=== PATIENT | male | born 2000 | race Caucasian/White ===

== ENCOUNTER 2024-07-15 11:37 | Outpatient (CLI) | payer OTHER, SELFPAY ==
--- NOTE | 2024-07-15 11:50 | XR_ITS ---
WS: [id number] Exam: XR lumbar spine min 4V [id number] Date/Time of Exam: 07/15/2024 11:51 AM Reason For Exam: CHRONIC LOWER BACK PAIN No acute fracture or dislocation. Disc spaces are preserved. Posterior elements are intact. XR/XR lumbar spine min 4V [id number] IMPRESSION: 1. Normal lumbar spine study.
--- NOTE | 2024-07-15 11:50 | XR_ITS ---
WS: [id number] Exam: XR cervical spine 3V* [id number] Date/Time of Exam: 07/15/2024 11:51 AM Reason For Exam: CHRONIC NECK PAIN No fracture or dislocation. Disc spaces are preserved. Posterior elements are intact. Normal paraspin al soft tissues. Normal odontoid. XR/XR cervical spine 3V* [id number] IMPRESSION: 1. Normal C-spine study.
--- NOTE | 2024-07-15 11:51 | XR_ITS ---
WS: [id number] Exam: XR ankle LT min 3V* [id number] Date/Time of Exam: 07/15/2024 11:51 AM Reason For Exam: LEFT ANKLE PAIN No acute fracture or dislocation. Cable fixation across the tibiofibular syndesmosis. The ankle morti se is equidistant. Old fracture deformity of the lower fibula. XR/XR ankle LT min 3V* [id number] IMPRESSION: 1. No acute fracture. Old fibular fracture. 2. Cable fixation across the tibiofibular syndesmosis.
== END 2024-07-15 11:38 | disposition home or self-care (01) ==
PROVIDERS: Family Provider Family Medicine; PCP Family Medicine; Visit Provider Family Medicine
DX: M25.572 Pain in left ankle and joints of left foot (principal); M54.50 Low back pain, unspecified
CPT/HCPCS: 72040; 72110; 73610

== ENCOUNTER 2024-10-08 03:37 | Emergency (ER) | payer OTHER, MEDICAID, SELFPAY ==
[2024-10-08 03:40] VITALS: BP 170/92; PULSE 78; RESP 17; TEMP 36.3; O2SAT 97; BMI 37.2
--- NOTE | 2024-10-08 04:23 | ED_ITS ---
HPI - Abdominal Pain 2 General: Chief Complaint: Abdominal Pain Stated Complaint: n/v/d sharp pain in right chest Time Seen by Provider: 10/08/24 04:18 History of Present Illness: Patient with nausea vomiting diarrhea around 1:00 with cold sweats. He does report some intermittent sharp stabbing right upper quadrant abdominal pain. He is reportedly his 5 episodes of emesis some diarrhea since he woke up. Patient does not get sick like this very often however he is going around the house released to his members of the household with same symptoms. Related Data Home Medications Medication Instructions Recorded Confirmed cyclobenzaprine 10 mg tablet 10 mg PO TID 08/01/24 08/01/24 naproxen 500 mg tablet 500 mg PO BID 08/01/24 08/01/24 Allergies Allergy/AdvReac Type Severity Reaction Status Date / Time Sulfa (Sulfonamide Allergy Unknown Verified 10/08/24 03:48 Antibiotics) Review of Systems 2 General: Reports: 10 or more systems reviewed and unremarkable except in HPI and below PFSH ED 2 PFSH: Social History Smoking and tobacco/nicotine status: current every day tobacco/nicotine user Alcohol intake: never Substance/Drug Use: never Physical Exam 2 Const: COMMON NORMALS: no acute distress, average body habitus, patient oriented x3, no limitations, healthy appearing, alert and well nourished HENMT: COMMON NORMALS: normocephalic, atraumatic, hearing grossly normal bilaterally, external ears normal, Normal external nose present and moist oral mucous membranes HEAD & SCALP: normocephalic and atraumatic NOSE: Normal external nose present EXTERNAL EAR: Yes external ears normal Neck/C-Spine: COMMON NORMALS: no JVD Chest: COMMONS NORMALS: normal inspection of the chest and normal palpation of entire chest wall Resp: COMMON NORMALS: normal respiratory effort, No retractions, No use of accessory muscles and clear to auscultation bilaterally AUSCULTATION: clear to auscultation bilaterally Cardio: COMMON NORMALS: no JVD, regular rate, regular rhythm, S1 normal heart sound present, S2 normal heart sound present, No gallops present (Cardio), No clicks present (Cardio), No murmurs present (Cardio) and No rub (Cardio) R ATE: regular rate RHYTHM: regular rhythm HEART SOUNDS: S1 normal heart sound present and S2 normal heart sound present GI: COMMON NORMALS: Normal to inspection, nondistended, normoactive bowel sounds present, Soft to palpation, non-tender, No hepatosplenomegaly present and no masses PALPATION: Yes Soft to palpation and Yes No hepatosplenomegaly present Neuro: COMMON NORMALS: patient oriented x3 SENSORIUM/ORIENTATION: Yes alert Course 2 Vital Signs: Vital signs: Vital Signs Temperature 97.3 F L 10/08/24 03:40 Pulse Rate 78 10/08/24 03:40 Respiratory Rate 17 10/08/24 03:40 Blood Pressure 170/92 10/08/24 03:40 Pulse Oximetry 97 10/08/24 03:40 Oxygen Delivery Me thod Room Air 10/08/24 03:40 MDM - Abdominal Pain Medical Decision Making Lab work was obtained revealed a white count 17.49, is thought to be elevated due to the stress throwing up. Patient not threw up anymore here and drinks several sprites. Patient be discharged home with diagnosis gastroenteritis. Medical Records I reviewed the patient's medical records. Lab Data I reviewed the patient's lab results. 10/08/24 04:19 10/08/24 04:19 Labs/Radiology: Laboratory Results WBC 17.49 10^3/uL (3.29-11.43) H 10/08/24 04:19 RBC 5.59 10^6/uL (3.85-5.65) 10/08/24 04:19 Hgb 16.50 g/dL (11.27-16.99) 10/08/24 04:19 Hct 49.5 % (37-53) 10/08/24 04:19 MCV 88.6 fl (82-101) 10/08/24 04:19 MCH 29.5 pg (27-33) 10/08/24 04:19 MCHC 33.3 g/dL (30-55) 10/08/24 04:19 RDW 11.9 % (12.1-15.1) L 10/08/24 04:19 Plt Count 264 10^3/cmm (157-399) 10/08/24 04:19 MPV 10.0 fL (7.4-10.4) 10/08/24 04:19 Neut % (Auto) 88.7 % 10/08/24 04:19 Lymph % (Auto) 5.7 % 10/08/24 04:19 [place] % (Auto) 4.1 % 10/08/24 04:19 Eos % (Auto) 1.0 % 10/08/24 04:19 Baso % (Auto) 0.2 % 10/08/24 04:19 Neut # (Auto) 15.51 10^3/uL (1.8-7.7) H 10/08/24 04:19 Lymph # (Auto) 1.0 10^3/uL (0.8-4.8) 10/08/24 04:19 [place] # (Auto) 0.7 10^3/uL (0.2-0.9) 10/08/24 04:19 Eos # (Auto) 0.2 10^3/uL (0.0-0.8) 10/08/24 04:19 Baso # (Auto) 0.0 10^3/uL (0.0-0.1) 10/08/24 04:19 Nucleated RBC % (auto) 0 % 10/08/24 04:19 Nucleated RBCs # 0.0 /100WBC 10/08/24 04:19 Sodium 139 mmol/L (136-145) 10/08/24 04:19 Potassium 4.0 mmol/L (3.5-5.1) 10/08/24 04:19 Chloride 100 mmol/L (98-107) 10/08/24 04:19 Carbon Dioxide 24 mmol/L (22-29) 10/08/24 04:19 Anion Gap 19.0 (5-19) 10/08/24 04:19 BUN 17 mg/dL (6-20) 10/08/24 04:19 Creatinine 0.9 mg/dL (0.7-1.2) 10/08/24 04:19 GFR Calculation 102.8 mL/min (90-130) 10/08/24 04:19 Glucose 116 mg/dL (65-115) H 10/08/24 04:19 Calculated Osmolality 291 mOsm/kg (285-295) 10/08/24 04:19 Calcium 9.7 mg/dL (8.5-10.5) 10/08/24 04:19 Magnesium 2.0 mg/dL (1.7-2.3) 10/08/24 04:19 Total Bilirubin 0.8 mg/dL (0.15-1.2) 10/08/24 04:19 AST 30 U/L (0-40) 10/08/24 04:19 ALT 38 U/L (0-41) 10/08/24 04:19 Alkaline Phosphatase 101 U/L (40-130) 10/08/24 04:19 Total Protein 8.4 g/dL (6.6-8.7) 10/08/24 04:19 Albumin 4.8 g/dL (3.5-5.2) 10/08/24 04:19 Globulin 3.6 g/dL (1.3-4.6) 10/08/24 04:19 Lipase 19 U/L (13-60) 10/08/24 04:19 No radiology studies performed this visit Discharge Plan Discharge Patient Disposition: Home Clinical Impression: Gastroenteritis Condition: Stable Prescriptions: No Action cyclobenzaprine 10 mg tablet 10 mg PO TID naproxen 500 mg tablet 500 mg PO BID Discharge Orders: Discharge ED (Routine); Ordered 10/08/24 Ordered By: Ezekiel Alexander Referrals: Quincy Barrera DO [Primary Care Provider] - 1 week Patient Instructions: Gastroenteritis (ED) Activity Restrictions/Additional Instructions: Thank you for choosing [facility] for your healthcare needs today. Please realize that you were seen in the emergency department and that we are providing you with an emergency medical screening exam and this may not be a complete and all exclusive of all testing and/or medical workup we may need to determine your element or severity of your illness. It is very important that you follow-up as instructed with your primary care provider or specialist for the additional evaluation and to discuss your medical treatment plan. You may return to the emergency department should you have concerns or if your condition changes or worsens in any way. Coding Level of Care Code ED Director Nurses' Registry for Dunia Bustillo
[2024-10-08 04:35] LABS: Basophils % 0.2 %; Eosinophils # 0.2 10^3/uL (0.0-0.8); Hematocrit 49.5 % (37-53); Lymphocytes % 5.7 %; Mean Corpuscular HGB Conc 33.3 g/dL (30-55); Mean Corpuscular Hemoglobin 29.5 pg (27-33); Mean Corpuscular Volume 88.6 fl (82-101); Monocytes # 0.7 10^3/uL (0.2-0.9); Monocytes % 4.1 %; Neutrophils # 15.51 10^3/uL (1.8-7.7); Neutrophils % 88.7 %; Nucleated Red Blood Cells % 0 %; Platelet Count 264 10^3/cmm (157-399); Red Blood Count 5.59 10^6/uL (3.85-5.65); Red Cell Distribution Width 11.9 % (12.1-15.1); White Blood Count 17.49 10^3/uL (3.29-11.43)
[2024-10-08 04:53] LABS: Alanine Aminotransferase 38 U/L (0-41); Albumin Level 4.8 g/dL (3.5-5.2); Alkaline Phosphatase 101 U/L (40-130); Aspartate Amino Transferase 30 U/L (0-40); Blood Urea Nitrogen 17 mg/dL (6-20); Calcium 9.7 mg/dL (8.5-10.5); Carbon Dioxide 24 mmol/L (22-29); Chloride 100 mmol/L (98-107); Creatinine Clr Calc Pharmacy 180.9064; Globulin 3.6 g/dL (1.3-4.6); Glomerular Filtration Rate 102.8 mL/min (90-130); Glucose 116 mg/dL (65-115); Lipase 19 U/L (13-60); Osmolality Calculated 291 mOsm/kg (285-295); Sodium 139 mmol/L (136-145); Total Bilirubin 0.8 mg/dL (0.15-1.2); Total Protein 8.4 g/dL (6.6-8.7)
[2024-10-08 05:26] LABS: Bilirubin Urine Negative (Negative); Blood Urine Trace (Negative); Glucose Urine UA Negative (Normal); Ketones Urine 2+ (Negative); Leukocyte Esterase Urine Negative (Negative); Nitrate Urine Negative (Negative); Protein Urine Trace (Negative); Urine Appearance Clear (CLEAR); Urine Color Yellow (Yellow)
[2024-10-08 05:30] LABS: Specific Gravity, Urine 1.036 (1.005-1.030)
[2024-10-08 05:31] LABS: Add Urine Microscopic? YES; Bacteria Urine None Seen /hpf; Hyaline Casts Urine 19.02 /lpf; RBC Urine 0-2 /hpf (0-2); Squamous Epithelial Cell Urine 0-5 /hpf (0-5); Universal Test for UA Present (0); WBC Urine 0-5 /hpf (0-5)
[2024-10-08 05:38] LABS: Add Urine Culture? No; Mucus Urine 1+ /hpf
== END 2024-10-08 05:32 | disposition home or self-care (01) ==
PROVIDERS: Emergency Provider Emergency Medicine; PCP Family Medicine
DX: K52.9 Noninfective gastroenteritis and colitis, unspecified (principal); Z72.0 Tobacco use
CPT/HCPCS: 36415; 80053; 81001; 83690; 83735; 85025; 99283

== ENCOUNTER 2024-11-02 08:40 | Outpatient (CLI) | payer OTHER, MEDICAID, SELFPAY ==
--- NOTE | 2024-11-02 08:45 | MR_ITS ---
WS: [id number] MRI LUMBAR SPINE NONCONTRAST TECHNIQUE: Sagittal T1, T2 and STIR imaging. Axial T1 and T2 imaging. CLINICAL INFORMATION: LOW BACK PAIN COMPARISON: None. FINDINGS: Mild lumbar curve. No acute compression. RIGHT L4-5 disc extrusion measuring approximately 1.6 x 1.0 cm. L1-L2: Mild facet arthropathy. Spinal canal and foramen are patent. Mild annular bulging. Mild facet arthropathy. Slight effacement of the ventral thecal sac. Foramina are patent. L2-L3: Mild annular bulging. Mild facet arthropathy. Mild bilateral foraminal narrowing. L3-L4: L4-L5: RIGHT paracentral disc extrusion with slight inferior extension of disc material. Impingement on the traversing RIGHT L5 nerve root in the subarticular recess. Mild central canal stenosis. Mild f acet arthropathy. Mild RIGHT foraminal narrowing. L5-S1: Mild annular bulging. Mild facet arthropathy. Spinal canal and foramen are patent. Visualized pelvic bony structures: Normal. Paravertebral soft tissues: Normal. MR/MR lumbar spine wo con* [id number] IMPRESSION: 1. RIGHT paracentral disc extrusion L4-5 impinges the traversing RIGHT L5 nerv e root in the subarticular recess. Mild central canal stenosis. Disc material m easures 1.6 x 1.0 cm. Recommend spine surgery consultation. 2. Mild RIGHT L2-3 and bilateral L3-4 foraminal narrowing. Mild RIGHT L4-5 for aminal narrowing. 3. Mild facet arthropathy L4-L5 and L5-S1.
== END 2024-11-02 08:41 | disposition home or self-care (01) ==
PROVIDERS: PCP Family Medicine; Visit Provider Family Medicine
DX: M48.061 Spinal stenosis, lumbar region without neurogenic claudication (principal); M54.31 Sciatica, right side; R93.89 Abnormal findings on diagnostic imaging of other specified body structures; M47.896 Other spondylosis, lumbar region; M47.897 Other spondylosis, lumbosacral region; M43.8X6 Other specified deforming dorsopathies, lumbar region; M51.369 Other intervertebral disc degeneration, lumbar region without mention of lumbar back pain or lower extremity pain; M51.379 Other intervertebral disc degeneration, lumbosacral region without mention of lumbar back pain or lower extremity pain
CPT/HCPCS: 72148